=== PATIENT | male | born 1990 | race Caucasian/White ===

== ENCOUNTER → 2017-10-02 | Day surgery (SDC) | payer OTHER ==
[2017-09-02 12:06] VITALS: Ht 188 cm; Wt 88.6 kg
--- NOTE | 2017-10-01 15:41 | History and Physical ---
History & Physical Date of Service Oct 01, 2017. History & Physical CHIEF COMPLAINT: Right knee pain/injury. HISTORY OF PRESENT ILLNESS: This 27-year-old male presented to the clinic today for an evaluation by Dr. Elizondo for a second opinion in regards to his right knee injury that he sustained approximately 2 years ago while playing basketball. The patient states that over the past several months, he has been experiencing catching and clicking that is intermittent, but does affect his daily living. 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 He denies any edema at this time. He states that initially after the injury, he did have some bruising and swelling, which has since resolved with the use of a brace. The patient has tried physical therapy and nonsteroidals with no relief of symptoms. PAST SURGICAL HISTORY: [place] tooth extraction. PAST MEDICAL HISTORY: ADHD. FAMILY HISTORY: Noncontributory. ALLERGIES: The patient has no known drug allergies. CURRENT MEDICATIONS: bicalutamide unknown dosage daily, fish oil 500 mg oral capsule daily. SOCIAL HISTORY: The patient denies a history of smoking or illicit drug use. States that he socially consumes alcohol, likely 1-2 drinks per week. PHYSICAL EXAMINATION: Skin: The patient's skin is normal in appearance. No open skin lesions or discharge. Eyes: Pupils are equal and reactive to light and accommodating. Extraocular movements are intact. Ears: Canals clear of cerumen. Tympanic membranes are intact bilaterally with no bulging or effusion. Nose: Turbinates pink and boggy in appearance. No appreciable rhinorrhea. Throat: Posterior oropharynx clear without absence of edema, erythema or exudate. Cardiovascular exam: The patient has a regular rate and rhythm, no murmurs or gallops appreciated. Lungs: Auscultation of lung alexandra reveals clear breath sounds throughout with no wheezing, rales or rhonchi. Abdomen is nonobese, nondistended, nontender with normoactive bowel sounds. Extremities: Right knee, the patient is able to extend 0 degrees and flex to approximately 125 degrees. He has mild crepitation with active passive range of motion, but no medial or lateral joint line tenderness when the knee is palpated in flexed position. There is no edema, erythema, ecchymosis, warmth or palpable bony deformity. No varus or valgus laxity, negative AP drawer sign , negative Jeronimo test. The patient does experience medial knee tenderness in clicking when performing a Kiley's test. Otherwise, his right calf is soft and supple, nontender to palpation. He is neurovascularly intact in the bilateral lower extremities. Peripheral pulses palpable. Capillary refill is brisk. All other extremities are normal in appearance with appropriate range of motion and strength. Neurological exam: Cranial nerves 2-12 are intact with no motor or sensory deficits. Psychological/general exam: The patient is alert and oriented x3 with proper grooming and hygiene. DIAGNOSES: Right knee loose body; cartilage defect; possible meniscus tear. PROCEDURE: Right knee arthroscopy with meniscal debridement versus repair, chondroplasty, possible microfracture, and loose body removal. PLAN: The patient is scheduled to undergo this procedure with Dr. Edwin Elizondo at the [facility] on 10/02/2017. Risks and complications of the surgery such as infection, bleeding, pain, scarring, nerve and blood vessel damage, weakness, wound problems, stiffness, incomplete relief of symptoms, heart attack, stroke, , recurrent tear, blood clots, embolism , arthritis were explained to patient. He understood and agreed and signed the consent form with Dr. Elizondo at today's visit. At this point, there is no clinical indication for any preoperative medical testing or clearance. The patient will be scheduled for his postoperative followup with Dr. Elizondo 2 wks after surgery. His initial physical therapy appointment in our clinic will be 4-5 days post op and he will continue therapy here for a few weeks and upon returning to [place], he will continue therapy 2-3 times a week during the semester break. The patient states he has a set of crutches that he will bring with him on the day of surgery. He was provided with a prescription for [place] for postoperative pain control at today's visit. PDMP was checked and no red flags were raised that would prevent us from prescribing this medication. The patient was advised to hold his fish oil and glucosamine chondroitin supplements 1 week prior to surgery. He was advised that if a microfracture or a meniscal repair is performed, we will provide him with a prescription for aspirin for DVT prophylaxis and we will also provide a postoperative knee brace. The patient verbalized understanding of all information provided at today's visit. Thanked us for the care he has received and states if he has questions or concerns that should arise prior to the surgery date, he will contact the clinic.
[~2017-10-02] VITALS: Ht 188 cm; Wt 88.6 kg
[~2017-10-02] MED LIST: ATROPINE SULFATE 0.1 MG/ML 5ML SYR IV PRN; BUPIVACAINE/EPINEPHRINE 0.25% 1:200,000 30 ML VIAL ONE; CEFAZOLIN 2000MG IV PUSH 10 ML IV SCH; DEXAMETHASONE SOD INJ 4 MG/ML VIAL ONE; EpHEDrine SULFATE INJ 50 MG/ML AMP IV PRN; FENTANYL CITRATE INJ 50 MCG/1 ML 2 ML VIAL IV PRN; FENTANYL CITRATE INJ 50 MCG/1 ML 2 ML VIAL ONE; HYDR-5688 PO; HYDROmorphone INJ 1 MG/ML SYR ONE; KETOROLAC TROMETHAMINE 30 MG/ML VIAL ONE; LACTATED RINGER'S 1000ML 1,000 ML IV SCH; LIDOCAINE HCL 2% 2 ML VIAL (20MG/ML) ONE; LIDOCAINE/EPINEPHRINE 1% INJ 50 ML VIAL ONE; MIDAZOLAM HCL 1 MG/ML 2ML VIAL ONE; MoRPHine SULFATE 2 MG/ML CARP IV PRN; MoRPHine SULFATE 4 MG/ML 1 ML CARP\\VIAL IV PRN; NURSING VERBAL MED ORDER ONE; OMEG10007 PO; ONDANSETRON INJ 2 MG/ML 2 ML VIAL IV PRN; ONDANSETRON INJ 2 MG/ML 2 ML VIAL ONE; OXYCODONE/ACETAMINOPHEN 5-325 TAB PO PRN; PROMETHAZINE HCL INJ 6.25 MG in SODIUM CHLORIDE 0.9% 50ML 50 ML IV PRN; PROPOFOL IV EMULSION 10 MG/ML 20 ML VIAL IV ONE; PROT1POW7 PO; SODIUM CHLORIDE 0.9% 1000ML 1,000 ML IV SCH
--- NOTE | 2017-10-02 12:13 | History & Physical Bridge Note ---
H&P Re-Evaluation Bridge Note: I have examined the patient, reviewed the History & Physical and in the interval since the performance of the History & Physical I have noted the following changes of clinical significance: No changes noted
--- NOTE | 2017-10-02 15:02 | [facility] Post Operative Brief Note ---
Immediate Operative Summary Operative Date Oct 02, 2017. 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 Elizondo Shoe Singer Surgeon(s) Adenike Navarro Estimated Blood Loss 5ml Findings as above, 1.0x1.5 gr 3-4 chondrosis lateral femoral condyle Specimens None Anesthesia LMA Complication(s) None Disposition Recovery Room / PACU
--- NOTE | 2017-10-02 15:12 | Discharge Instructions-SurgCtr ---
Discharge Instructions Date of Service Oct 02, 2017. Visit Reason for Visit: Right Knee Loose Body, Cartilage Defect, Poss Meni Discharge Discharge Diagnosis / Problem: Right knee loose body Discharge Goals Goal(s): Decrease discomfort, Improve function, Increase independence Medications Stopped Medications Name(s): fish oil stopped on friday. Restart Stopped Medication(s): Resume fish oil tomorrow Activity Recommendations Activity Limitations: per Instructions/Follow-up section Weightbearing Status: Left weightbearing (as tolerated), Right weightbearing ( as tolerated) Anesthesia . Post Anesthesia Instructions: If you have had General Anesthesia or IV Sedation: * Do not drive today. * Resume driving when surgeon permits. * Do not make important decisions or sign legal documents today. * Call surgeon for: 1. Temperature elevations greater than 101 degrees F. 2. Uncontrollable pain. 3. Excessive bleeding. 4. Persistent nausea and vomiting. 5. Medication intolerance (nausea, vomiting or rash). * For nausea and vomiting use only clear liquids such as: tea, soda, bouillon until nausea subsides, then gradually increase diet as tolerated. * If you have any concerns or questions, call your surgeon's office. If physician is unavailable and it is an emergency, call 911 or go to the nearest emergency room. . Instructions / Follow-Up Instructions / Follow-Up The following are instructions to follow after your Arthroscopic Knee Surgery. ACTIVITY RECOMMENDATIONS: * Minimize activity until your first visit after surgery. * No excessive walking, jogging, sports or laboring. * Return to activity is individualized. Most patients are able to return to every day activities within one month. * Return to sports or intensive labor usually occurs at 2-3 months. * Driving is not permitted until at least your first postoperative visit at a minimum. Please ask your doctor when it is safe to resume driving. If you have an automatic vehicle and your left leg has been operated on, then you may begin driving as soon as you are comfortable and can drive safely. SCHOOL/WORK RECOMMENDATIONS: * You may return to sedentary work or school when you are feeling more comfortable. This is usually 3-7 days after surgery. * Expect increased discomfort with increased activity. Continue to elevate and ice the leg as much as possible. MEDICATIONS: * You will have a prescription for pain medication and an anti-inflammatory medication after surgery. * Use the pain medication for severe pain and the anti-inflammatory for less severe pain. Once the pain medication has run out, try to use the anti-inflammatory medication. If this is not effective, contact the office for assistance. * The pain medication may cause nausea, constipation and drowsiness. You should see how they affect you before driving or similar activity. * The anti-inflammatory medication may cause stomach upset and bleeding. If this occurs let your doctor know immediately . * Take a stool softener like Colace or a laxative like Senokot to prevent constipation. DIET: * Resume previous diet. SPECIAL CARE: ICE: You have the option of an ice cooler, gel packs or ice bags. * If you have an ice cooler, refer to the instructions for that device. The ice cooler may be used continuously. * If you do not have an ice cooler, you will need to use ice bags or gel packs. Do not apply ice directly to the skin. Use a thin dressing or cristopher shirt between the skin and ice bag. Apply ice for 20-30 minutes and repeat every 2-4 hours. This is especially important for the first 7-10 days after surgery. Once the pain improves, use ice as needed. ELEVATION: * Keep your leg elevated at or above the level of your heart as much as possible. * Expect some increased discomfort and swelling if you are standing for any length of time. * When lying down, avoid placing anything under your knee. Rather, prop your leg up by placing several pillows under your heel or calf. DRESSING: * Your dressing will be changed at your first therapy appointment approximately 4-5 days after surgery. Band-aids, tape strips or gauze may be applied. You may then change your dressing daily. * Reapply dressing followed by the Shahriar wrap or Tubi-supervisor joiners stockinet and EBIce cooling pad (if chosen). * Always wash your hands prior to touching the incision area. * Once the stitches are removed, you may leave the wound open to air or cover with an Shahriar wrap or Tubi-supervisor joiners stockinet. * If you have been given a white elastic stocking (CARLEEN hose), wear as much as possible for the first 1-3 weeks depending on swelling. * Expect some bloody drainage for the first few days after surgery. * Leave the tape strips, if present, in place for 5-7 days. * Band-aids and gauze may be changed daily. CRUTCHES: * You will need to use crutches after surgery. * You may gradually progress to full weight bearing as tolerated and wean off the crutches unless otherwise advised. * Your therapist can provide assistance weaning off crutches. * Patients who have a microfracture done may need to be toe-touch weight- bearing for 4-6 weeks. BATHING: * You may shower or sponge-bathe immediately after surgery. * The dressing will need to be covered with a plastic bag or plastic wrap until the dressing is changed on the fourth or fifth day after surgery. * Once the dressing has been changed on the fourth or fifth day after surgery, you may shower and get the incision wet. * Wash with regular soap and water. * Do not bathe (submerge the incision), soak, swim or use a hot tub until the incision is completely healed over with normal skin and the doctor has given the OK to proceed. * There is no need to apply any ointments, powders or salves to your incision. * Do not apply alcohol or hydrogen peroxide directly to the incision. * Diluted peroxide (50:50 mixture with sterile saline) may be used to clean dried blood from around the incision area. BRACE: * Bracing is generally not needed after routine Arthroscopic Knee surgery. THERAPY: * You will begin therapy four or five days after surgery. * Organized therapy with the therapist is important for the first 4-6 weeks after surgery. During that time you will attend therapy 1-3 times per week. * You will also need to do daily exercises for range of motion and strength as instructed. PROBLEMS/QUESTIONS: * If you have any problems such as severe pain, numbness, tingling or high fevers or if you have any questions, please contact the office at [phone]. * It is not uncommon to have some numbness and tingling after the surgery especially if you have had a nerve block done. This should gradually improve over the first 1- 2 days. If this persists longer or worsens please contact the office. FOLLOW UP VISIT: * If not already scheduled, please call the office at to schedule a follow-up appointment for 10 days, 6 weeks and 3 months after surgery. * You have a physical therapy appointment scheduled for next week, please call to confirm appointment * Follow up with Dr. Elizondo as scheduled for your post operative appointment. Diet Recommendations Home Diet: no limitations, resume previous diet Procedures Procedures Performed: Right Knee Arthroscopy, Loose Body Removal Pending Studies Studies pending at discharge: no Medical Emergencies . Who to Call and When: Medical Emergencies: If at any time you feel your situation is an emergency, please call 911 immediately. . Non-Emergent Contact Non-Emergency issues call your: Surgeon Call Non-Emergent contact if: temperature is above 101, your pain is not controlled, your pain is worsening, wound has increased drainage, wound has increased redness, wound has increased pain, you have any medication questions . . "Provider Documentation" section prepared by Barb Hernández. . [place] Drug Monitoring Program Search Results: patient reviewed within database, no issues identified
--- NOTE | 2017-10-02 15:14 | [facility] Operative Report ---
Operative Report Operative Date Oct 02, 2017. 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 Elizondo Jet Handler Surgeon(s) Adenike Navarro Estimated Blood Loss 5ml Findings Loose body right knee Specimens None Anesthesia LMA Complication(s) None Disposition Recovery Room / PACU Indications Patient is a 27-year-old male who is status post a chronic patellar dislocations of his right knee. X-rays and MRI obtained. Sound to have a loose body intra-articularly and his right knee. Conservative treatment has failed. Surgical intervention were discussed. He wished to proceed with surgery. Risks and complications were discussed and informed consent was obtained. Description of Procedure Patient was taken to the operating room and placed under general anesthesia. He was given 2 g of IV Ancef for surgical prophylaxis. Timeout was performed. He was prepped and draped in routine sterile fashion. I was present during the entire case, please see Dr. Elizondo's operative report for further detail. Patient was awakened and transferred to the recovery room in stable condition. I attest to the content of the Intraoperative Record and any orders documented therein. Any exceptions are noted below.
[2017-10-02 15:42] VITALS: TEMP 36.5
--- NOTE | 2017-10-02 15:51 | OPERATIVE REPORT ---
DATE OF OPERATION: 10/02/2017 PREOPERATIVE DIAGNOSIS: Chronic right knee patellar instability with loose body, lateral femoral condyle chondrosis. POSTOPERATIVE DIAGNOSIS: Same. PROCEDURE: Right knee arthroscopy, loose body removal. SURGEON: Dr. Elizondo. BOARD OF DIRECTORS: Barb Hernández PA-C and Kush Nunes, fellow. ANESTHESIA: Laryngeal mask. INDICATIONS FOR PROCEDURE: The patient is a 27-year-old gentleman who is status post several patellar dislocations. He has developed a loose body and has mechanical symptoms referable to that. He has not had any patellar instability episodes in the recent past. His examination suggests increased tibial tubercle to trochlear groove offset and the potential need for a tibial tubercle osteotomy to improve this patellar tracking. He may also require other adjunctive procedures which could include medial patellofemoral ligament reconstruction and cartilage moravian procedures. He has been apprised that unless at bedtime mechanical alignment is changed his propensity for recurrent patellar instability and further damage to his knee, which could lead to impairment, arthritis and pain remains elevated. 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 We did talk about doing a microfracture of his chondral defect if it were indicated. His symptoms are consistent with loose body and at this time he would like to do the least possible. PROCEDURE IN DETAIL: Informed consent was obtained. The patient identified as Logan Clement. He identified the operative site as the right knee. I marked it with my initials. A preop surgical time out was performed. A preoperative dose of IV antibiotics was given. He was taken to the operating room, positioned supine on the OR table. A laryngeal mask anesthetic was administered. A tourniquet was applied to the right thigh but not inflated during the case. A lateral post used for stressing the knee. The knee was injected with 1% lidocaine with epinephrine for the fat pad, portal sites and knee joint. The knee was prepped and draped in usual sterile fashion. DVT prophylaxis will be done with early patient mobility. The exam under anesthesia showed full range of motion. He had 1 quadrant of lateral patellar translation which was equal bilaterally. He had what appeared to clinically be increased lateralization of the tibial tubercle. The cruciate and collateral ligaments were normal and stable. His examination was symmetric to the contralateral side. The procedure began after routine prep and drape establishing inferolateral viewing portal, superolateral outflow portal, and inferomedial working portal. Diagnostic arthroscopy was performed. The cruciate ligaments looked normal. The retropatellar fat pad was resected revealing the loose body. The medial portal was enlarged and loose body was removed and a picture was obtained. The trochlea was normal except that it was abnormally flat. The medial and lateral gutters were unremarkable. The suprapatellar pouch was normal. The lateral compartment showed normal articular surfaces with a slight bubble near the terminal sulcus of the cartilage otherwise looking normal. The meniscus, popliteal hiatus, posteromedial and lateral compartments, medial meniscus and articular surfaces in the medial compartment were all normal. There was another small loose body in the front of the knee which had some synovialization and this was debrided with a shaver. The other loose body removed was about 1 cm wide and 1.5 cm long. The trochlear sulcus was flat. There was a chondral lesion grade 3-4 in change centrally with what appeared to be some regrowth of cartilaginous tissue present. This was noncontained. The margins were slightly weakened and fibrillated and this was debrided. The lesion itself appeared to have minimal contact with the patella. The overlying patella did track laterally but had no chondrosis on it. There was evidence of prior injury to the medial facet of the patella where there had been some fibrocartilage ingrowth. The remainder of the patella looked normal and no chondroplasty was performed there. There is evidence of scarring near the MPFO which could indicate a prior injury. As the lesion was noncontained and his patella tracking remains chronically lateral plus with some fibrocartilage ingrowth I elected to leave the lateral condyle lesion as is, light chondroplasty was performed there. The arthroscopic instruments were removed. The portals were closed with 4-0 nylon, soft sterile dressing was applied. He was awakened from anesthesia without difficulty and taken to the recovery room in stable condition. There were no specimens or complications. Counts were correct at the end of the case. Blood loss was minimal. At the conclusion of the operation, I spoke to the patient's father and informed him of my findings. Detailed postoperative instructions were given. He can weightbear as tolerated and will be rehabilitated according a loose body type protocol. He will be able to bend his knee, weightbear as tolerated and he will follow up with me in the office as scheduled. DVT prophylaxis will be done with early mobility. A soft sterile dressing was applied. Blood loss was approximately 5 mL. I attest to the content of the Intraoperative Record and any orders documented therein. Any exception s are noted below.
--- NOTE | 2017-10-02 15:54 | Anesthesiology Progress Note ---
Anesthesia Post Op Note Date & Time Oct 02, 2017 at 15:54 Vital Signs Pain Intensity: 3 Vital Signs Past 12 Hours Date Time Temp Pulse Resp B/P (MAP) Pulse Ox O2 Delivery O2 Flow Rate FiO2 10/02/17 15:40 36.5 74 12 161/80 98 Room Air 10/02/17 15:39 73 13 100 10/02/17 15:39 72 13 10/02/17 15:36 161/80 10/02/17 15:34 76 14 100 10/02/17 15:34 78 14 10/02/17 15:32 151/81 10/02/17 15:29 88 13 10/02/17 15:29 90 13 100 10/02/17 15:28 87 10 100 10/02/17 15:28 87 10 10/02/17 15:26 145/81 10/02/17 15:23 95 14 100 10/02/17 15:23 94 14 10/02/17 15:21 176/87 10/02/17 15:18 89 15 10/02/17 15:18 15 10/02/17 15:16 156/77 10/02/17 15:13 63 17 10/02/17 15:13 63 17 99 10/02/17 15:11 127/67 10/02/17 15:09 132/62 10/02/17 15:08 36.4 63 16 132/62 99 Diffusion Mask 6 10/02/17 11:06 36.6 66 16 128/85 (99) 98 Room Air Notes Mental Status: alert / awake / arousable, participated in evaluation Pt Amnestic to Procedure: Yes Nausea / Vomiting: adequately controlled Pain: adequately controlled Airway Patency, RR, SpO2: stable & adequate BP & HR: stable & adequate Hydration State: stable & adequate Anesthetic Complications: no major complications apparent
[2017-10-02 16:10] VITALS: BP 136/77; PULSE 70; O2SAT 100
== END | disposition home or self-care (01) ==
LOC: X.SURG 10:47
PROVIDERS: ATTEND Physical Medicine & Rehabilitation Sports Medicine
DX: M23.51 Chronic instability of knee, right knee (principal); M23.41 Loose body in knee, right knee; F90.9 Attention-deficit hyperactivity disorder, unspecified type